=== PATIENT | male | born 1995 | race Caucasian/White ===

== ENCOUNTER 2017-11-02 14:13 | Inpatient (IN) | payer OTHER ==
[~2017-11-02] VITALS: Ht 162.6 cm; Wt 65.5 kg
--- NOTE | 2017-11-02 15:34 | RADRPT ---
PROCEDURE: XR Chest. CLINICAL INDICATION: chest pain TECHNIQUE: Single frontal view of the chest was obtained COMPARISON: None FINDINGS: The heart and mediastinum are within normal limits. There is a tracheostomy tube in place. There is a right-sided FULL STACK SOFTWARE ENGINEER shunt catheter tubing noted. The lungs are clear. There is no pleural effusion or pneumothorax. RPTAT: AA IMPRESSION: No acute disease. .Reuben Bashir MD, MD Date Time Electronically viewed and signed by .Reuben Bashir MD, on 11/02/2017 15:34 .S/
[2017-11-02] MEDS ORDERED: L. A1CAP12 GTB (15:43)
[2017-11-02] MEDS ORDERED: ALBU2.5V3 NEB (15:48)
[2017-11-02] MEDS ORDERED: MINE3.5O30 BOTH EYES (15:52)
[2017-11-02] MEDS ORDERED: CHLO473M7 MM (15:55)
[2017-11-02] MEDS ORDERED: DOCU-144 GTB (15:56)
[2017-11-02] MEDS ORDERED: APIX2.5T GTB (15:56)
[2017-11-02] MEDS ORDERED: KEP100S PO (15:57)
[2017-11-02] MEDS ORDERED: ATOR10TA65 GTB (15:58)
[2017-11-02] MEDS ORDERED: AMLO2.5T2 GTB (15:59)
[2017-11-02] MEDS ORDERED: ACET325T33 GTB ×2 (16:03)
[2017-11-02] MEDS ORDERED: CRAN3875 PO (16:04)
[2017-11-02] MEDS ORDERED: CHOL100062 GTB (16:05)
[2017-11-02 16:24] LABS: BASOPHILS % 0.7 % (0.0-2.0); EOSINOPHILS # 0.2 10^3/ul (0.0-0.5); EOSINOPHILS % 3.3 % (0.0-7.0); HEMOGLOBIN 14.5 g/dl (14.0-18.0); LYMPHOCYTES # 0.6 10^3/ul (0.8-2.9); LYMPHOCYTES % 11.8 % (15.0-51.0); MEAN CORPUSCULAR HEMOGLOBIN 31.3 pg (29.0-33.0); MEAN CORPUSCULAR HGB CONC 35.4 g/dl (32.0-37.0); MEAN CORPUSCULAR VOLUME 88.4 fl (82.0-101.0); MEAN PLATELET VOLUME 10.4 fl (7.4-10.4); MONOCYTE # 0.4 10^3/ul (0.3-0.9); MONOCYTES % 8.1 % (0.0-11.0); NEUTROPHIL # 4.1 10^3/ul (1.6-7.5); NEUTROPHILS % 75.9 % (39.0-77.0); PLATELET COUNT 189 10^3/UL (140-415); RED BLOOD COUNT 4.64 10^6/ul (4.70-6.10); WHITE BLOOD COUNT 5.4 10^3/ul (4.8-10.8)
[2017-11-02 16:44] LABS: CALCIUM 9.8 mg/dl (8.4-10.2); CREATININE 0.52 mg/dl (0.61-1.24)
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
--- NOTE | 2017-11-02 17:57 | RADRPT ---
PROCEDURE: CTA neck CLINICAL INDICATION: Hematoma. Status post tracheostomy tube placement. TECHNIQUE: The study was performed utilizing multidetector CT scanner. Direct thin section axial s ections were obtained through the neck after the uneventful administration of 85 cc of Omnipaque-350 nonionic intravenous contrast material. Coronal and sagittal as well as maximal intensity projecti on reformations were obtained. 3-D images were made. The images were reviewed on a PACS workstation . One or more the following does reduction techniques were utilized: Automated exposure control, adj ustment of the mA/ or kV according to patient's size, or use of iterative reconstruction technique. The total CTDIvol is 37.12, 17.4 mGy and the DLP is all 534.46 mGy-cm. DICOM images are available. COMPARISON: No prior studies are available for comparison. FINDINGS: There is retrosternal hematoma with associated gas densities measuring approximately 1.7 x 4.7 x 5.4 cm (AP x transverse x craniocaudal) which also extends into the right supra clavicular region. Smal l gas foci are also noted along the right carotid sheath and left sternocleidomastoid muscle. The origins of the great vessels off the aortic arch are patent without significant stenosis. The c ommon carotid and internal carotid arteries are patent without significant stenosis by NASCET criter ia. Direct measurements of vessel diameters was made in reference to measurements of the distal inte rnal carotid artery diameter. The vertebral arteries are also patent without high-grade stenosis. Partially visualized left greater than right dependent atelectasis is noted. IMPRESSION: 1. Retrosternal hematoma with associated gas densities measuring approximately 1.7 x 4.7 x 5.4 cm w hich also extends into the right supra clavicular region. Small gas foci are also noted along the ri ght carotid sheath and left sternocleidomastoid muscle. 2. Patent major neck arteries. RPTAT: HH .Priscila Mendez MD, Date Time Electronically viewed and signed by .Priscila Mendez MD, MD on 11/02/2017 17:56 .N/
[2017-11-02] MEDS ORDERED: IOHEXOL 100 ML ONE (18:06)
[2017-11-02] MEDS ORDERED: SOD CHLORIDE 0.9% 100 ML ONE (18:06)
[2017-11-02] MEDS ORDERED: SOD CHLORIDE 0.9% 1,000 ML IV STA (18:42)
[2017-11-02 20:21] LABS: INR 1.04; PROTIME 13.7 Sec (11.9-14.9); PT RATIO 1.1
[2017-11-02 23:35] VITALS: TEMP 98.4
[2017-11-03] VITALS (11 sets, daily range): BP systolic 104–120; BP diastolic 57–82; PULSE 74–117; RESP 18–20; Ht 162.6 cm; Wt 65.5 kg
[2017-11-03] MEDS ORDERED: LORAZEPAM 0.5 MG TAB PO PRN (01:00)
[2017-11-03] MEDS ORDERED: NACL 0.9% 3 ML SYG IV SCH (01:00)
[2017-11-03] MEDS ORDERED: ONDANSETRON 4 MG INJ IV PRN (01:00)
[2017-11-03] MEDS ORDERED: morphine 2 MG INJ IV PRN (01:00)
[2017-11-03] MEDS ORDERED: ACETAMINOPHEN 325 MG TAB PO PRN (01:00)
[2017-11-03] MEDS ORDERED: ALBUTEROL/IPRATROPIUM (NEB) 3 ML AMP HHN PRN (01:00)
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
[2017-11-03 07:56] LABS: ABNORMAL IP MESSAGE 1; BASOPHILS % 0.4 % (0.0-2.0); EOSINOPHILS % 0.1 % (0.0-7.0); HEMATOCRIT 40.4 % (42.0-52.0); LYMPHOCYTES # 0.6 10^3/ul (0.8-2.9); LYMPHOCYTES % 7.9 % (15.0-51.0); MEAN CORPUSCULAR HGB CONC 34.7 g/dl (32.0-37.0); MEAN CORPUSCULAR VOLUME 89.6 fl (82.0-101.0); MEAN PLATELET VOLUME 10.6 fl (7.4-10.4); MONOCYTE # 0.6 10^3/ul (0.3-0.9); MONOCYTES % 8.6 % (0.0-11.0); NEUTROPHIL # 5.8 10^3/ul (1.6-7.5); NEUTROPHILS % 82.9 % (39.0-77.0); PLATELET COUNT 181 10^3/UL (140-415); POSITIVE DIFF @See below; RED BLOOD COUNT 4.51 10^6/ul (4.70-6.10)
[2017-11-03 08:19] LABS: ALBUMIN 4.2 g/dl (3.3-4.9); ALBUMIN/GLOBULIN RATIO 1.07; CALCIUM 9.4 mg/dl (8.4-10.2); CREATININE 0.49 mg/dl (0.61-1.24); POTASSIUM 4.3 mmol/L (3.5-5.1); TOTAL PROTEIN 8.1 g/dl (6.1-8.1)
[2017-11-03] MEDS: LEVETIRACETAM (100 MG/ML) 5ML CUP GTB SCH ×2 (09:08→20:47)
[2017-11-03] MEDS: ATORVASTATIN 10 MG TAB GTB SCH (20:44)
[2017-11-03] MEDS ORDERED: PENDING SANTYL ORDER FOR WOUND CARE XX PRN (23:30)
[2017-11-04] VITALS (12 sets, daily range): BP systolic 96–118; BP diastolic 55–74; PULSE 71–97; RESP 16–23
[2017-11-04 08:01] LABS: ABNORMAL IP MESSAGE 1; BASOPHILS % 0.7 % (0.0-2.0); EOSINOPHILS # 0.2 10^3/ul (0.0-0.5); EOSINOPHILS % 2.8 % (0.0-7.0); HEMATOCRIT 39.3 % (42.0-52.0); HEMOGLOBIN 13.3 g/dl (14.0-18.0); LYMPHOCYTES # 0.6 10^3/ul (0.8-2.9); LYMPHOCYTES % 10.7 % (15.0-51.0); MEAN CORPUSCULAR HEMOGLOBIN 30.9 pg (29.0-33.0); MEAN CORPUSCULAR HGB CONC 33.8 g/dl (32.0-37.0); MEAN CORPUSCULAR VOLUME 91.4 fl (82.0-101.0); MEAN PLATELET VOLUME 10.7 fl (7.4-10.4); MONOCYTE # 0.4 10^3/ul (0.3-0.9); MONOCYTES % 7.7 % (0.0-11.0); NEUTROPHIL # 4.2 10^3/ul (1.6-7.5); NEUTROPHILS % 77.9 % (39.0-77.0); PLATELET COUNT 186 10^3/UL (140-415); POSITIVE DIFF @See below; WHITE BLOOD COUNT 5.4 10^3/ul (4.8-10.8)
[2017-11-04 08:17] LABS: CALCIUM 9.6 mg/dl (8.4-10.2); CREATININE 0.55 mg/dl (0.61-1.24); MAGNESIUM 2.3 mg/dl (1.7-2.5); PHOSPHORUS 3.1 mg/dl (2.5-4.9); POTASSIUM 3.6 mmol/L (3.5-5.1)
[2017-11-04] MEDS: LEVETIRACETAM (100 MG/ML) 5ML CUP GTB SCH ×2 (08:54→21:00)
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
[2017-11-04] MEDS: SENNA/DOCUSATE NA (8.6MG/50MG) TAB PO SCH (21:00)
[2017-11-04] MEDS: ATORVASTATIN 10 MG TAB GTB SCH (21:00)
[2017-11-04] MEDS: DOCUSATE SODIUM 10 MG/ML (10ML CUP) GTB SCH (21:00)
[2017-11-05] VITALS (10 sets, daily range): BP systolic 100–136; BP diastolic 64–89; PULSE 64–92; RESP 16–24
[2017-11-05] MEDS: DOCUSATE SODIUM 10 MG/ML (10ML CUP) GTB SCH (08:38)
[2017-11-05] MEDS: SENNA/DOCUSATE NA (8.6MG/50MG) TAB PO SCH (08:38)
[2017-11-05] MEDS: LEVETIRACETAM (100 MG/ML) 5ML CUP GTB SCH (08:38)
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
== END 2017-11-05 17:42 | DRG 205 ==
LOC: E/R 14:13 → TEL 19:14
PROVIDERS: ADMIT Internal Medicine; ATTEND Internal Medicine
PROC: 0B21XFZ Change Tracheostomy Device in Trachea, External Approach (ICD-10-PCS; principal; 2017-11-02)
DX: Z43.0 Encounter for attention to tracheostomy (principal); J96.90 Respiratory failure, unspecified, unspecified whether with hypoxia or hypercapnia; G93.1 Anoxic brain damage, not elsewhere classified; Z79.02 Long term (current) use of antithrombotics/antiplatelets; I10 Essential (primary) hypertension; M79.81 Nontraumatic hematoma of soft tissue
CPT/HCPCS: 70498; 71010; 80048; 80053; 82962; 83735; 84100; 85025; 85610; 87081; J7030; Q9967